=== PATIENT | female | born 1970 | race Caucasian/White ===

== ENCOUNTER 2020-10-29 10:57 | Inpatient (IN) | payer SELFPAY ==
[~2020-10-29] VITALS: Ht 165.1 cm; Wt 101.3 kg
[2020-10-29 12:00] LABS: INR 1.3 (0.8-3.0); PROTHROMBIN TIME 14.4 SECONDS (9.7-12.8)
[2020-10-29 12:03] LABS: BASO % 0.3 % (0.0-2.0); GRAN # 6.6 (1.4-6.5); GRAN % 88.3 % (42.2-75.2); HEMOGLOBIN 12.1 g/dl (12.5-16.0); LYMPH # 0.6 (1.2-3.4); LYMPH % 7.8 % (20.0-51.0); MEAN CELL VOLUME 89 fl (80.0-100.0); MEAN CORPUSCULAR HEMOGLOBIN 30 pg (27.0-31.0); MEAN CORPUSCULAR HGB CONC 33 g/dl (33.0-37.0); MEAN PLATELET VOLUME 10.6 fl (7.4-10.4); MONO # 0.2 (0.1-0.6); MONO % 2.7 % (1.7-9.3); PLATELET COUNT 210 K/mm3 (130-400); RED BLOOD COUNT 4.06 M/mm3 (4.10-5.30); REDCELL DISTRIBUTION WIDTH-CV 13.3 % (11.5-14.5)
[2020-10-29 12:05] LABS: HEMATOCRIT 36.3 % (37.0-47.0)
[2020-10-29 12:09] LABS: ALANINE AMINOTRANSFERASE 36 U/L (4-34); ALBUMIN 3.8 gm/dL (3.5-5.0); ALKALINE PHOSPHATASE 77 U/L (50-136); ANION GAP 11 mmol/L (7-16); AST,SGOT 63 U/L (15-37); BILIRUBIN,TOTAL 0.5 mg/dL (0.0-1.0); BLOOD UREA NITROGEN 28 mg/dL (7-17); CALCIUM 9.6 mg/dL (8.4-10.2); CARBON DIOXIDE 27 mmol/L (22-30); CHLORIDE 100 mmol/L (98-107); CREATININE, serum 1.21 (0.52-1.25); GLUCOSE 124 mg/dL (74-106); POTASSIUM 3.5 mmol/L (3.4-5.0); SODIUM 138 mmol/L (137-145); TOTAL PROTEIN 7.6 gm/dL (6.4-8.2)
[2020-10-29 12:10] LABS: ARTERIAL BLD GAS O2 SATURATION 92.7 % (92-100); ARTERIAL BLOOD GAS BASE EXCESS 1.8 (-2-2); ARTERIAL BLOOD GAS HCO3 24.9 meq/L (22-26); ARTERIAL BLOOD GAS PCO2 34.3 mmHg (35-45); ARTERIAL BLOOD GAS PO2 61.3 mmHg (80-100); ARTERIAL BLOOD GAS pH 7.48 (7.35-7.45)
[2020-10-29 12:22] LABS: TROPONIN-I < 0.012 ng/mL (0.000-0.035)
[2020-10-29 12:56] LABS: C-REACTIVE PROTEIN 38.1 mg/dL (0.0-0.9)
[2020-10-29 13:03] LABS: COLLECTION METHOD CLEAN CATCH
[2020-10-29 13:11] LABS: MUCOUS Present /lpf; PH 5 (5-8); URINE APPEARANCE Cloudy; URINE BACTERIA Rare /hpf; URINE BILIRUBIN Positive (NEGATIVE); URINE BLOOD 1+ (NEGATIVE); URINE COLOR Amber; URINE GLUCOSE Negative (NEGATIVE); URINE KETONE Trace (NEGATIVE); URINE LEUKOCYTE ESTERASE Negative (NEGATIVE); URINE NITRATE Positive (NEGATIVE); URINE PROTEIN(semi-quant) 2+ (NEGATIVE); URINE UROBILINOGEN Negative (NEGATIVE)
[2020-10-29 18:37] VITALS: BP 127/64; PULSE 94; TEMP 99
[2020-10-29 20:03] VITALS: BP 133/64; PULSE 98; TEMP 100.2
--- NOTE | 2020-10-29 23:10 | NUR ---
Patient alert and oriented. Patient was on 12 high flow NC at shift start. Noticed breathing was tachypnic and slightly labored. Patient was desating on 12L high flow NC around 21:00 pm. Respiratory therapist in the room and put on oxymask 15L. SPO2 still desating below 90%. Respiratory therapist put on Airvo 50L/80% around 23:00 pm. Patient tolerating well with Airvo. Patient denies any pain or discomfort. Call light in reach. Will continue to monitor.
[2020-10-30] VITALS (7 sets, daily range): BP systolic 108–138; BP diastolic 58–83; PULSE 66–96; TEMP 97.8–100.2
[2020-10-30] MEDS ORDERED: TYLENOL 325MG325 MG PO (01:46)
[2020-10-30 05:35] LABS: ARTERIAL BLD GAS O2 SATURATION 92.7 % (92-100); ARTERIAL BLD GAS TCO2 CT 23.4; ARTERIAL BLOOD GAS BASE EXCESS -1.3 (-2-2); ARTERIAL BLOOD GAS HCO3 22.3 meq/L (22-26); ARTERIAL BLOOD GAS PCO2 33.5 mmHg (35-45); ARTERIAL BLOOD GAS pH 7.44 (7.35-7.45)
--- NOTE | 2020-10-30 06:33 | NUR ---
Patient remains on Airvo 50L/80% over the night. Patient had temp of 100.2F last night. PRN Tylenol given. Temp down to 98.8F this morning. Call light in reach.
--- NOTE | 2020-10-30 06:55 | NUR ---
Report received from ADRI Conklin. Pt. resting in bed getting labs drawn at this time. This RN introduced self and explained she would be the nurse for today. Call light and belongings in reach.
--- NOTE | 2020-10-30 07:05 | NUR ---
Report received from ADRI oCnklin. Pt. resting with eyes closed in bed with BIPAP. Call light in reach.
--- NOTE | 2020-10-30 07:48 | NUR ---
Pt. awake, alert and oriented x4. Pt. called to use the commode. Pt. tolerated the transfer well, standby assist, and was able to void. Pt. desat to 87% with the ambulation to the commode, which was close to the bed. Pt. oriented to the room, telephone, and all questions answered. Call light and belongings in reach. This RN educated the pt. on the plan of care and the medications she will be getting today to treat the virus. Pt. verbalized understanding.
[2020-10-30 07:49] LABS: ALBUMIN 3.1 gm/dL (3.5-5.0); BILIRUBIN,TOTAL 0.3 mg/dL (0.0-1.0); CREATININE, serum 0.69 (0.52-1.25); POTASSIUM 3.5 mmol/L (3.4-5.0); TOTAL PROTEIN 6.3 gm/dL (6.4-8.2)
[2020-10-30 08:06] LABS: BASO % 0.2 % (0.0-2.0); GRAN # 4.7 (1.4-6.5); GRAN % 82.1 % (42.2-75.2); LYMPH # 0.7 (1.2-3.4); LYMPH % 11.6 % (20.0-51.0); MEAN CELL VOLUME 93 fl (80.0-100.0); MEAN CORPUSCULAR HGB CONC 32 g/dl (33.0-37.0); MEAN PLATELET VOLUME 9.9 fl (7.4-10.4); MONO # 0.3 (0.1-0.6); MONO % 4.9 % (1.7-9.3); PLATELET COUNT 240 K/mm3 (130-400); RED BLOOD COUNT 3.33 M/mm3 (4.10-5.30); REDCELL DISTRIBUTION WIDTH-CV 13.5 % (11.5-14.5)
[2020-10-30 08:12] LABS: C-REACTIVE PROTEIN 32.2 mg/dL (0.0-0.9)
[2020-10-30 08:13] LABS: MEAN CORPUSCULAR HEMOGLOBIN 30 pg (27.0-31.0)
--- NOTE | 2020-10-30 18:50 | NUR ---
Pt. had an OK day. Pt. remains on AIRVO 60L at 89%. Pt.'s O2 sat was about 93% throughout the day. Pt. had a steady gait and has been OOB to the chair for about three hours. Pt. educated on the plan of care regarding new medications. Oral care encouraged. Call light and belongings in reach. Report given to ADRI Conklin.
--- NOTE | 2020-10-30 23:38 | NUR ---
Patient A/Ox4. Patient currently on Airvo 60L/90%. Patient reports SOB with activities. Non-productive occansion cough noted. Patient denies pain, N/V, or diarrhea. TV remote and bed control was not working in the room. Moved patient to room 305 around 21:30 pm. PRN Call light in reach. Will continue to monitor.
[2020-10-31 03:29] VITALS: BP 125/61; PULSE 80; TEMP 98.4
[2020-10-31 06:09] LABS: ARTERIAL BLD GAS TCO2 CT 27.8; ARTERIAL BLOOD GAS BASE EXCESS 2.2 (-2-2); ARTERIAL BLOOD GAS HCO3 26.6 meq/L (22-26); ARTERIAL BLOOD GAS PCO2 40.6 mmHg (35-45); ARTERIAL BLOOD GAS PO2 83.8 mmHg (80-100); ARTERIAL BLOOD GAS pH 7.43 (7.35-7.45)
--- NOTE | 2020-10-31 06:21 | NUR ---
Patient remains on Airvo 60L/86% over the night. VS stable. PRN cough med given throughout the night for coughing. Call light in reach.
--- NOTE | 2020-10-31 07:00 | NUR ---
Report received form ADRI Conklin. Pt in b ed resting, denies needs, will continue to monitor.
[2020-10-31 07:24] LABS: HEMOGLOBIN 10.1 g/dl (12.5-16.0); MEAN CELL VOLUME 94 fl (80.0-100.0); MEAN CORPUSCULAR HEMOGLOBIN 30 pg (27.0-31.0); MEAN CORPUSCULAR HGB CONC 32 g/dl (33.0-37.0); MEAN PLATELET VOLUME 10.4 fl (7.4-10.4); PLATELET COUNT 267 K/mm3 (130-400); RED BLOOD COUNT 3.34 M/mm3 (4.10-5.30); REDCELL DISTRIBUTION WIDTH-CV 13.5 % (11.5-14.5)
[2020-10-31 07:30] LABS: HEMATOCRIT 31.4 % (37.0-47.0)
[2020-10-31 07:39] LABS: ALBUMIN 3.2 gm/dL (3.5-5.0); BILIRUBIN,TOTAL 0.3 mg/dL (0.0-1.0); CALCIUM 8.1 mg/dL (8.4-10.2); CREATININE, serum 0.62 (0.52-1.25); POTASSIUM 3.6 mmol/L (3.4-5.0); TOTAL PROTEIN 6.5 gm/dL (6.4-8.2)
[2020-10-31 08:11] VITALS: BP 119/66; PULSE 74; TEMP 97.8
[2020-10-31 08:13] LABS: C-REACTIVE PROTEIN 28.5 mg/dL (0.0-0.9)
--- NOTE | 2020-10-31 08:27 | NUR ---
Assessment charted. Pt doing well, states she is able to get some stuff up now when she coughs on ambulation. Denies pain. Lungs are course and crackly, discussed that she is currently maxed on AIRVO but doesn't seem distressed or labored with breathing. INT to RFA and LH. Will continue to monitor.
[2020-10-31 09:00] LABS: BAND 2 % (0-10); LYMPHOCYTE 11 % (20.0-51.0); NEUTROPHILS 87 % (42.0-75.2)
[2020-10-31 09:01] LABS: HYPOCHROMIA 1+; PLATELET ESTIMATE NORMAL (NORMAL)
[2020-10-31 11:19] VITALS: BP 127/69; PULSE 90; TEMP 98.4
--- NOTE | 2020-10-31 11:48 | NUR ---
SW called patient to complete intake. Patient states that she lives in [place], [place] with her Roberto Carlos [phone]. Patient states that she does not utilize DME, and is independent with ADL's and does not utilize HH services. Patient provides that she does not have a PCP, and states that she does not have a pharmacy due to not having any medications to take consistently. Patient provides that she does not have a DPOA-HC, and plans to return home up on [place]. Patient states that she does not have any questions, nor concerns at this time. SW will continue to follow. DC Plan: Home
[2020-10-31 17:17] VITALS: BP 127/70; PULSE 82; TEMP 97.9
--- NOTE | 2020-10-31 18:14 | NUR ---
Pt has done well today. States she is feeling better and not getting as winded or taking as long to regain breath after ambulating. Denies needs, PRN cough syrup givne, will give report to nightshift nruse who will resume care.
[2020-10-31 21:03] VITALS: BP 151/71; PULSE 83; TEMP 98.2
[2020-10-31 23:33] VITALS: BP 141/75; PULSE 85; TEMP 98.7
[2020-11-01 04:31] VITALS: BP 132/69; PULSE 71; TEMP 98.4
[2020-11-01 06:58] LABS: MEAN CELL VOLUME 95 fl (80.0-100.0); MEAN CORPUSCULAR HEMOGLOBIN 31 pg (27.0-31.0); MEAN CORPUSCULAR HGB CONC 32 g/dl (33.0-37.0); MEAN PLATELET VOLUME 10.8 fl (7.4-10.4); PLATELET COUNT 265 K/mm3 (130-400); RED BLOOD COUNT 3.28 M/mm3 (4.10-5.30); REDCELL DISTRIBUTION WIDTH-CV 13.5 % (11.5-14.5)
[2020-11-01 07:06] LABS: HEMATOCRIT 31.1 % (37.0-47.0)
[2020-11-01 07:16] LABS: ALBUMIN 2.9 gm/dL (3.5-5.0); BILIRUBIN,TOTAL 0.3 mg/dL (0.0-1.0); CALCIUM 7.6 mg/dL (8.4-10.2); CREATININE, serum 0.6 (0.52-1.25); POTASSIUM 3.8 mmol/L (3.4-5.0)
[2020-11-01 07:28] LABS: C-REACTIVE PROTEIN 13.4 mg/dL (0.0-0.9)
[2020-11-01 07:45] LABS: BAND 7 % (0-10); LYMPHOCYTE 11 % (20.0-51.0); NEUTROPHILS 79 % (42.0-75.2); PLATELET ESTIMATE NORMAL (NORMAL)
--- NOTE | 2020-11-01 09:07 | NUR ---
Pt awake upon entry, no C/O pain at this time. Shift assessment complete, left Pt call light in reach, bed in lowest position.
[2020-11-01 09:40] VITALS: BP 134/70; PULSE 93; TEMP 98.2
[2020-11-01 12:00] VITALS: BP 136/68; PULSE 82; TEMP 97.6
[2020-11-01 16:52] VITALS: BP 149/78; PULSE 71; TEMP 97.6
[2020-11-01 20:57] VITALS: BP 144/70; PULSE 79; TEMP 98.9
--- NOTE | 2020-11-01 22:21 | NUR ---
PT RESTING IN BED. EVENING MEDICATIONS GIVEN. PT ON AIRVO 60L/85% AND TOLERATING WELL. PT DID HAVE A NOSE BLEED EARLIER TODAY, RT MADE AWARE AND INCREASED THE HUMIDITY. PT LUNGS SOUNDS DIMINSHED WITH WHEEZING IN THE BILATERAL BASES. PT STATES SHE HAS TROUBLE GETTING DEEP, FULL BREATHES. DENIES ANY NEEDS AT THIS TIME. WILL CONTINUE TO MONITOR.
[2020-11-01 23:26] VITALS: BP 118/66; PULSE 83; TEMP 98.9
[2020-11-02 03:50] VITALS: BP 117/77; PULSE 74; TEMP 97.9
--- NOTE | 2020-11-02 05:56 | NUR ---
PT HAD A RESTFUL NIGHT. RT BUMPED HER AIRVO UP TO 60L/90% DUE TO HER O2 DROPPING AFTER GETTING UP TO THE BATHROOM. DENIES ANY NEEDS AT THIS TIME. WILL CONTINUE TO MONITOR.
[2020-11-02 09:00] VITALS: BP 143/67; PULSE 88; TEMP 98.2
--- NOTE | 2020-11-02 09:48 | NUR ---
Pt awake and alert upon entry, in bed, no C/O pain at this time. Shift assessments complete, left Pt call light in reach, bed in lowest position, needs met.
[2020-11-02 12:17] VITALS: BP 138/75; PULSE 71; TEMP 97.7
[2020-11-02 16:09] VITALS: BP 133/78; PULSE 89; TEMP 98.1
[2020-11-02 19:22] VITALS: BP 143/75; PULSE 89; TEMP 98.4
--- NOTE | 2020-11-02 21:11 | NUR ---
PT RESTING IN BED. EVENING MEDICATIONS GIVEN. LUNGS AUSCULTATED WITH COARSE CRACKLES. PT REPORTS HAVING SOME THICK YELLOW SPUTUM DURING COUGHING FITS. DENIES ANY NEEDS AT THIS TIME. WILL CONTINUE TO MONITOR.
[2020-11-02 22:21] VITALS: BP 150/70; PULSE 71; TEMP 98.1
[2020-11-03 03:21] VITALS: BP 158/88; PULSE 73; TEMP 98.1
--- NOTE | 2020-11-03 06:14 | NUR ---
PT HAD A RESTFUL NIGHT. PT WAS ABLE TO COUGH UP AND COLLECT SOME SPUTUM TO SHOW ME, IT WAS THICK AND ORANGEISH. DENIES ANY NEEDS AT THIS TIME. WILL CONTINUE TO MONITOR.
--- NOTE | 2020-11-03 08:12 | NUR ---
Pt awake upon entry to room, in bed, no C/O pain at this time. IV finished, disconnected. Shift assessment complete, left Pt call light in reach, bed in lowest position, needs met.
[2020-11-03 09:27] VITALS: BP 143/77; PULSE 79; TEMP 97.8
[2020-11-03 12:06] VITALS: BP 154/83; PULSE 73; TEMP 97.9
[2020-11-03 16:13] VITALS: BP 160/79; PULSE 66; TEMP 98.1
--- NOTE | 2020-11-03 18:21 | NUR ---
Pt resting in the room, no C/O pain throughout the day. Currently on 60 LPM AIRVO. VS have remained stable.
[2020-11-03 19:30] VITALS: BP 157/82; PULSE 71; TEMP 98.2
[2020-11-04] VITALS (7 sets, daily range): BP systolic 120–164; BP diastolic 69–91; PULSE 78–91; TEMP 96.4–98.6
--- NOTE | 2020-11-04 05:20 | NUR ---
Awake, alert, oriented x 4, able to make needs known, VS stable, tolerating air vo 60L 85%FIO2, encouraging proning and use of incentive spirometer, denies pain.
[2020-11-04 08:38] LABS: HEMOGLOBIN 11.1 g/dl (12.5-16.0); MEAN CELL VOLUME 93 fl (80.0-100.0); MEAN CORPUSCULAR HEMOGLOBIN 29 pg (27.0-31.0); MEAN CORPUSCULAR HGB CONC 32 g/dl (33.0-37.0); MEAN PLATELET VOLUME 9.8 fl (7.4-10.4); PLATELET COUNT 223 K/mm3 (130-400); RED BLOOD COUNT 3.77 M/mm3 (4.10-5.30); REDCELL DISTRIBUTION WIDTH-CV 13.3 % (11.5-14.5)
[2020-11-04 08:41] LABS: HEMATOCRIT 34.9 % (37.0-47.0)
--- NOTE | 2020-11-04 08:43 | NUR ---
Pt sitting up in the bed upon entry, she is A/O x4. Her breathing is even and unlabored on Airvo, pt has some SOB on exertion. Reports she has been sitting upright more and using IS. Denies any pain. No N/V/D. No further needs at this time. Call light within reach.
[2020-11-04 08:58] LABS: C-REACTIVE PROTEIN 2.1 mg/dL (0.0-0.9); CALCIUM 7.9 mg/dL (8.4-10.2); CREATININE, serum 0.7 (0.52-1.25); MAGNESIUM 2.1 mg/dL (1.6-2.3); POTASSIUM 4.1 mmol/L (3.4-5.0)
[2020-11-04 09:07] LABS: BAND 5 % (0-10); LYMPHOCYTE 16 % (20.0-51.0); METAMYELOCYTE 2 % (0-0); NEUTROPHILS 74 % (42.0-75.2); NUCLEATED RED BLOOD CELL 1 (0-6); PLATELET ESTIMATE NORMAL (NORMAL); POLYCHROMASIA 1+
--- NOTE | 2020-11-04 13:13 | NUR ---
SW contacted the patient to follow up. The patient states that she is doing alright. She plans on returning back home with her upon discharge. The patient is self pay. She reports that she has received an FAA, but has not filled it out yet. The patient remains on 60 liters of oxygen, via high flow cannula. SW to continue to monitor.
[2020-11-05] VITALS (7 sets, daily range): BP systolic 108–158; BP diastolic 61–86; PULSE 65–87; TEMP 97.7–99
--- NOTE | 2020-11-05 05:04 | NUR ---
Awake, alert, Ox 4, ambulatory, tolerating Air Vo at 55L/70%, VS stable, denies pain, will continue to monitor.
--- NOTE | 2020-11-05 17:20 | NUR ---
assumed care of pt, pt in room with airvo on, pt has no requests at this time, call light within reach.
[2020-11-06] VITALS (7 sets, daily range): BP systolic 112–144; BP diastolic 58–82; PULSE 67–98; TEMP 98–98.6
--- NOTE | 2020-11-06 04:57 | NUR ---
Awake, alert, oriented x 4, able to make needs known, Tolerating O2@15L per Hi rosangela NC, shob noted on exertion, VS stable.
--- NOTE | 2020-11-06 08:00 | NUR ---
Patient resting in bed, easily awakened with verbal command. A&Ox4. VSS 15L HF NC, no reported SOB. Patient denies pain and discomfort. Independent in the room. Droplet/contact precautions in place. No further needs expressed. Call light within reach
--- NOTE | 2020-11-06 17:15 | NUR ---
Patient had an uneventful day. Was able to take a shower independently. A&Ox4. VSS 12L HF NC. IV CDI. Denies pain and discomfort. Droplet/contact precautions in place. No further needs expressed. Call light within reach
--- NOTE | 2020-11-06 20:32 | NUR ---
Patient A/Ox4. Patient is currently on 12L oxygen via HF NC. Patient denies SOB or dyspnea while at rest. Patient denies pain, N/V, or diarrhea. Occasional non-productive cough noted. PRN cough med given per patient request. Scheduled meds given per APR. Call light in reach. Will continue to monitor.
[2020-11-07 03:53] VITALS: BP 124/76; PULSE 74; TEMP 98.4
--- NOTE | 2020-11-07 04:31 | NUR ---
Patient currently on oxygen 9L HF NC. VS stable. SPO2 remains above 90% on 9L. No acute respiratory distress noted. Call light in reach.
[2020-11-07 07:32] VITALS: BP 118/76; PULSE 78; TEMP 98.1
--- NOTE | 2020-11-07 08:00 | NUR ---
Patient sitting up in bed watching TV. A&Ox4. VSS 10L HF O2. No reported SOB. IV CDI. Denies pain and discomfort. Droplet/contact precautions in place. No further needs expressed. Call light within reach
[2020-11-07 11:53] VITALS: BP 127/71; PULSE 89; TEMP 97.9
[2020-11-07 15:28] VITALS: BP 120/71; PULSE 94; TEMP 97.8
--- NOTE | 2020-11-07 17:32 | NUR ---
Patient had an uneventful day. A&Ox4. VSS 7L HF NC O2, no reported SOB. IV CDI. Denies pain and discomfort. Independent in the room. Droplet/contact precautions in place. Call light within reach
[2020-11-07 19:36] VITALS: BP 124/65; PULSE 87; TEMP 98.9
--- NOTE | 2020-11-07 23:10 | NUR ---
Patient A/Ox4. Patient denies any pain, SOB, N/V, or diarrhea. Patient currently on 7L oxygen via HF NC. Breathing even and unlabored. VS stable. No acute respiratory distress noted. Scheduled meds given per APR. Call light in reach. Will continue to monitor.
[2020-11-07 23:56] VITALS: BP 140/74; BP 140/747; PULSE 77; TEMP 98.8
[2020-11-08 03:44] VITALS: BP 127/74; PULSE 72; TEMP 98.5
[2020-11-08 08:09] VITALS: BP 115/70; PULSE 81; TEMP 97.9
--- NOTE | 2020-11-08 08:15 | NUR ---
PT PLEASANT, AOX4, SATTING 89% AT REST ON 6L SO TITRATED TO 7L AND PT O2 SAT INC TO 91%. PT DENIES PAIN AT THIS TIME,EDUCATED ON PRN COUGH MEDICATION IF NEEDED, EDUCATED ON DEXAMETHASONE GIVEN, PICC FLUSHED AND REWRAPPED, BREAKFAST DELIVERED TO PT, MEDICATIONS GIVEN, ASSESSMENT PERFORMED, FRESH ICE WATER BROUGHT IN, NO OTHER NEEDS AT THIS TIME
[2020-11-08 12:15] VITALS: BP 138/84; PULSE 101; TEMP 98.4
[2020-11-08 16:42] VITALS: BP 136/72; PULSE 92; TEMP 98.8
--- NOTE | 2020-11-08 17:26 | NUR ---
PT PLEASANT, AOX4, O2 TITRATED TO 5L NC, PT DENIES PAIN BUT REQUESTED COUGH SYRUP. MEDS GIVEN, NO OTHER NEEDS AT THIS TIME
[2020-11-08 20:52] VITALS: BP 131/81; PULSE 95; TEMP 98.8
--- NOTE | 2020-11-08 22:41 | NUR ---
PT ALERT AND ORIENTED. PT BASES DIMINISHED LUNG SOUNDS BILATERALLY. PT DENIES PAIN AT THIS TIME, EXPRESSES EXCITEMENT FOR POTENTIAL DISCHARGE IF OXYGEN NEEDS CONTINUE TO DECREASE. PT EXPLORED THE NECESSITY FOR GOALS TO IMPROVE MOOD WHILE IN ROOM. PT REQUESTED NICOTINE GUM, ADMINISTERED PER ORDERS. PT ABLE TO AMBULATE INDEPENDENTLY. PT CALL LIGHT WITHIN REACH.
[2020-11-08 23:18] VITALS: BP 138/75; PULSE 89; TEMP 98.6
[2020-11-09 03:15] VITALS: BP 128/69; PULSE 76; TEMP 98.1
--- NOTE | 2020-11-09 05:46 | NUR ---
PT CONTINUING ON PLAN OF CARE. PT VITAL SIGNS REMAINED STABLE OVERNIGHT. PT REMAINED ON 5L HIGH FLOW NASAL CANNULA, SATURATIONS ABOVE 91%. PT ABLE TO AMBULATE INDEPENDENTLY IN ROOM. DENIED PAIN FOR DURATION OF SHIFT. PT FREE FROM INJURY THIS SHIFT.
[2020-11-09 07:07] LABS: HEMATOCRIT 42.1 % (37.0-47.0); HEMOGLOBIN 13.2 g/dl (12.5-16.0); MEAN CELL VOLUME 96 fl (80.0-100.0); MEAN CORPUSCULAR HEMOGLOBIN 30 pg (27.0-31.0); MEAN CORPUSCULAR HGB CONC 31 g/dl (33.0-37.0); MEAN PLATELET VOLUME 10.5 fl (7.4-10.4); PLATELET COUNT 141 K/mm3 (130-400); RED BLOOD COUNT 4.37 M/mm3 (4.10-5.30); REDCELL DISTRIBUTION WIDTH-CV 14.4 % (11.5-14.5)
[2020-11-09 07:19] LABS: CALCIUM 8.9 mg/dL (8.4-10.2); CREATININE, serum 0.58 (0.52-1.25); POTASSIUM 4.6 mmol/L (3.4-5.0)
[2020-11-09 07:51] VITALS: BP 132/73; PULSE 83; TEMP 98
--- NOTE | 2020-11-09 08:02 | NUR ---
REPORT RECEIVED FROM ADRI ENRIQUE. PT ALERT/ORIENT IN BED TALKING ON PHONE. PT DENIES PAIN. STATES SHE HOPES TO LEAVE TODAY. PT HAS NO NEEDS AT THIS TIME. CALL MCCLELLAN IN REACH
[2020-11-09 08:28] LABS: BAND 8 % (0-10); LYMPHOCYTE 13 % (20.0-51.0); METAMYELOCYTE 1 % (0-0); NEUTROPHILS 72 % (42.0-75.2)
[2020-11-09 08:30] LABS: HYPOCHROMIA 2+; PLATELET ESTIMATE NORMAL (NORMAL)
[2020-11-09 11:57] VITALS: BP 121/70; PULSE 82; TEMP 98.5
--- NOTE | 2020-11-09 14:10 | NUR ---
Due to patient being COVID positive, MEG called to speak with patient about the FAA paperwork provided to her upon admission. Patient stated that the hospital is holding her hostage unless she fills the application out. This worker assured her that the application is only needed since she is self-pay and to avoid a large hospital bill; it will also help pay for oxygen if needed at time of d/c. Patient stated her took the nicky home and he is working in [place] so there is "nothing" she can do about it. MEG called and spoke with , Roberto Carlos, and he said he had it partially filled out.
[2020-11-09 16:41] VITALS: BP 114/79; PULSE 89; TEMP 98.8
--- NOTE | 2020-11-09 17:44 | NUR ---
PT HAD UNEVENTFUL DAY. HOPING FOR D/C TOMORROW. DENIES PAIN. PT HAS NO NEEDS AT THIS TIME. CALL MCCLELLAN IN REACH
[2020-11-09 19:52] VITALS: BP 140/78; PULSE 97; TEMP 98.8
--- NOTE | 2020-11-09 21:33 | NUR ---
PT RESTING IN BED. EVENING MEDICATIONS GIVEN. LUNGS AUSCULTATED WITH COARSE CRACKLES IN BASES. PICC HAS BLOOD RETURN IN BOTH LUMENS. DENIES ANY NEEDS. UPDATED DR. WHITESIDE. WILL CONTINUE TO [facility].
[2020-11-10 00:23] VITALS: BP 139/72; PULSE 113; TEMP 97.6
[2020-11-10 03:42] VITALS: BP 132/71; PULSE 85; TEMP 97
--- NOTE | 2020-11-10 06:13 | NUR ---
PT HAD A RESTFUL NIGHT. MORNING LABS OBTAINED. DENIES ANY NEEDS AT THIS TIME.
[2020-11-10 07:56] LABS: HEMATOCRIT 40.1 % (37.0-47.0); HEMOGLOBIN 12.6 g/dl (12.5-16.0); MEAN CELL VOLUME 96 fl (80.0-100.0); MEAN CORPUSCULAR HEMOGLOBIN 30 pg (27.0-31.0); MEAN CORPUSCULAR HGB CONC 31 g/dl (33.0-37.0); MEAN PLATELET VOLUME 10.6 fl (7.4-10.4); PLATELET COUNT 137 K/mm3 (130-400); RED BLOOD COUNT 4.16 M/mm3 (4.10-5.30); REDCELL DISTRIBUTION WIDTH-CV 14.4 % (11.5-14.5)
[2020-11-10 08:11] LABS: CALCIUM 8.4 mg/dL (8.4-10.2); CREATININE, serum 0.69 (0.52-1.25); POTASSIUM 4.7 mmol/L (3.4-5.0)
[2020-11-10 08:41] VITALS: BP 113/71; PULSE 96; TEMP 98.2
[2020-11-10 09:04] LABS: BAND 10 % (0-10); HYPOCHROMIA 2+; LYMPHOCYTE 34 % (20.0-51.0); NEUTROPHILS 52 % (42.0-75.2)
[2020-11-10 09:05] LABS: PLATELET ESTIMATE NORMAL (NORMAL)
--- NOTE | 2020-11-10 11:50 | NUR ---
PT HAS MAINTAINED 90% ON 6L NC, WILL INCREASE TO MAINTAIN O2 SATURATION OF >92%. PER DR. WHITESIDE, THE PATIENT WILL GET A DOSE OF ACTEMRA DUE TO INCREASING O2 DEMANDS. WILL CONTACT DR. SQUIRES FOR ORDER. NO OTHER CONCERNS AT THIS TIME.
[2020-11-10] MEDS ORDERED: PROAIR HFA0.09 MG/AC IH (13:02)
[2020-11-10 15:30] VITALS: BP 143/77; PULSE 111; TEMP 99.2
--- NOTE | 2020-11-10 16:16 | NUR ---
PT HAS BEEN DISCHARGED, AND IS BEING WHEELED OUT BY THE PEDICURIST. NO OTHER CONCERNS.
== END 2020-11-10 16:17 | disposition home or self-care (01) | DRG 177 ==
LOC: COL.ER 10:57 → MEDICAL 14:18
PROVIDERS: Internal Medicine; Internal Medicine Sleep Medicine; Nurse Practitioner Primary Care; Student in an Organized Health Care Education/Training Program; ADMIT Internal Medicine
PROC: XW043E5 Introduction of Remdesivir Anti-infective into Central Vein, Percutaneous Approach, New Technology Group 5 (ICD-10-PCS; principal; 2020-10-30)
PROC: 02HV33Z Insertion of Infusion Device into Superior Vena Cava, Percutaneous Approach (ICD-10-PCS; 2020-11-02)
DX: U07.1 COVID-19 (principal); J96.01 Acute respiratory failure with hypoxia; R82.71 Bacteriuria; B96.20 Unspecified Escherichia coli [E. coli] as the cause of diseases classified elsewhere; R79.89 Other specified abnormal findings of blood chemistry; Z90.89 Acquired absence of other organs; Z90.721 Acquired absence of ovaries, unilateral; Z87.891 Personal history of nicotine dependence
CPT/HCPCS: 99223-AI; 99231-AI; 99232-AI; 99233-AI; 99239; A9284; C1751; J0456; J0696; J1650; J2543; J7030; J7050; J8540; Q9967